=== PATIENT | male | born 1950 | race Caucasian/White ===

== ENCOUNTER 2017-08-26 11:37 | Inpatient (IN) | payer MEDICARE ==
[~2017-08-26] VITALS: Ht 182.9 cm; Wt 89.4 kg
[~2017-08-26 11:37] MED LIST: ASPIR 8181 MG PO; CARVEDILOL12.5 MG PO; FUROSEMIDE40 MG PO; LISINOPRIL10 MG PO
[2017-08-26] MEDS ORDERED: SPIRONOLACTONE25 MG PO (12:05)
[2017-08-26] MEDS ORDERED: LAMISIL250 MG PO (12:05)
[2017-08-26] MEDS ORDERED: HARVONI PO (12:05)
[2017-08-26 12:56] LABS: KETONES,URINE NEGATIVE (NEGATIVE); LEUKOCYTE ESTERASE ,URINE TRACE (NEGATIVE); NITRITE,URINE NEGATIVE (NEGATIVE); URINE UROBILINOGEN 1 mg/dL (0.2 - 1)
[2017-08-26 13:02] LABS: BILIRUBIN,URINE 2+ (NEGATIVE); CLARITY,URINE SL CLOUDY (CLEAR); COLOR,URINE ORANGE (YELLOW); PROTEIN,URINE DIPSTICK 1+ (NEGATIVE)
[2017-08-26 13:22] LABS: BACTERIA,URINE MODERATE /HPF; CALCIUM OXALATE CRYSTALS,UR MODERATE (FEW)
[2017-08-26 13:23] LABS: EPITHELIAL CELLS,URINE FEW /LPF
[2017-08-26 15:15] LABS: BASOPHILS % 0.3 % (0.0-1.0); EOSINOPHILS # (AUTO) 0.1 (0.0-0.4); EOSINOPHILS % 0.6 % (0.0-6.0); HEMATOCRIT 56.6 % (38.2-49.6); HEMOGLOBIN 18.7 g/dL (14.0-18.0); LYMPHOCYTES # (AUTO) 2.5 (1.0-3.2); LYMPHOCYTES % 21.5 % (18.0-39.1); MEAN CORPUSCULAR HEMOGLOBIN 30.4 pg (28-32); MEAN CORPUSCULAR VOLUME 91.9 fL (81-99); MONOCYTES % 8.8 % (4.4-11.3); NEUTROPHILS # (AUTO) 7.9 (2.1-6.9); NEUTROPHILS % 68.3 % (38.7-80.0); PLATELET COUNT 286 x10e3/uL (140-360); RED BLOOD COUNT 6.16 x10e6/uL (4.3-5.7); RED CELL DISTRIBUTION WIDTH 15.8 % (11.7-14.4)
[2017-08-26 15:31] LABS: ALBUMIN 3.7 g/dL (3.5-5.0); ALBUMIN/GLOBULIN RATIO 0.8 (0.8-2.0); ANION GAP 16.3 mmol/L (8-16); CREATININE, SERUM 5.15 mg/dL (0.72-1.25)
[2017-08-26 15:35] LABS: CALCIUM 14.7 mg/dL (8.4-10.2); POTASSIUM 6.3 mmol/L (3.5-5.1)
[2017-08-26 15:37] LABS: CREATINE KINASE MB 1.4 ng/mL (0.00-5.00); TROPONIN I 0.056 ng/mL (0-0.300)
--- NOTE | 2017-08-26 15:48 | Diagnostic Imaging Report ---
PROCEDURE: A single AP view of the chest. COMPARISON: None. INDICATIONS: CENTER CHEST PAIN FOR 3 DAYS FINDINGS: Lines/tubes: None. Lungs: The lungs are well inflated and clear. There is no evidence of pneumonia or pulmonary edema. Pleura: There is no pleural effusion or pneumothorax. Heart and mediastinum: The thoracic aorta is tortuous and unfolded. The cardiac silhouette is normal in size. Bones: No acute bony abnormality. IMPRESSION: 1. No acute cardiopulmonary disease. Tortuous thoracic aorta. Joey Pierre M.D. Dictated by: Joey Pierre M.D. on 08/26/2017 at 15:56 Electronically approved by: Joey Pierre M.D. on 08/26/2017 at 15:56
[2017-08-26 15:49] LABS: INR 0.89; PARTIAL THROMBOPLASTIN TIME 27.8 seconds (23.8-35.5); PROTHROMBIN TIME 12.5 seconds (11.9-14.5)
[2017-08-26] MEDS ORDERED: SODIUM CHLORIDE 0.9% 1000ML 1,000 ML IV SCH (18:30)
[2017-08-26] MEDS ORDERED: SOD POLYSTYRENE SULFONATE SUSP 15 GM/60 ML BTL PR ONE (18:30)
[2017-08-26] MEDS ORDERED: FUROSEMIDE INJ 10 MG/ML 2 ML VIAL IV ONE (18:45)
[2017-08-26] MEDS ORDERED: ONDANSETRON HCL INJ 2 MG/ML VIAL IV STA (19:51)
[2017-08-26] MEDS: PANTOPRAZOLE INJ 40 MG in SODIUM CHLORIDE 0.9% 50ML 50 ML IV SCH (20:16)
[2017-08-26] MEDS: SODIUM CHLORIDE 0.9% 1000ML 1,000 ML IV SCH (20:44)
[2017-08-26] MEDS ORDERED: ONDANSETRON HCL INJ 2 MG/ML VIAL IV PRN (20:45)
[2017-08-26] MEDS ORDERED: FUROSEMIDE INJ 10 MG/ML 4 ML VIAL IV ONE (21:00)
[2017-08-26] MEDS ORDERED: NIFEDIPINE 10 MG CAP SL ONE (21:15)
[2017-08-27] VITALS (8 sets, daily range): BP systolic 114–146; BP diastolic 72–103
[2017-08-27] MEDS: PANTOPRAZOLE INJ 40 MG in SODIUM CHLORIDE 0.9% 50ML 50 ML IV SCH ×3 (01:59→11:29)
[2017-08-27] MEDS: SODIUM CHLORIDE 0.9% 1000ML 1,000 ML IV SCH ×4 (06:01→21:02)
[2017-08-27 06:22] LABS: BASOPHILS % 0.3 % (0.0-1.0); EOSINOPHILS # (AUTO) 0.1 (0.0-0.4); EOSINOPHILS % 1.2 % (0.0-6.0); HEMATOCRIT 52.6 % (38.2-49.6); HEMOGLOBIN 17.3 g/dL (14.0-18.0); LYMPHOCYTES # (AUTO) 2.2 (1.0-3.2); LYMPHOCYTES % 19.5 % (18.0-39.1); MEAN CORPUSCULAR HEMOGLOBIN 30.1 pg (28-32); MEAN CORPUSCULAR HGB CONC 32.9 g/dL (31-35); MEAN CORPUSCULAR VOLUME 91.5 fL (81-99); MONOCYTES # (AUTO) 1.1 (0.2-0.8); NEUTROPHILS # (AUTO) 7.7 (2.1-6.9); NEUTROPHILS % 68.5 % (38.7-80.0); PLATELET COUNT 275 x10e3/uL (140-360); RED BLOOD COUNT 5.75 x10e6/uL (4.3-5.7); RED CELL DISTRIBUTION WIDTH 15.6 % (11.7-14.4)
[2017-08-27 06:41] LABS: ALBUMIN 3.4 g/dL (3.5-5.0); ALBUMIN/GLOBULIN RATIO 0.8 (0.8-2.0); ANION GAP 15.8 mmol/L (8-16); CREATININE, SERUM 5.23 mg/dL (0.72-1.25)
[2017-08-27 07:05] LABS: CALCIUM 13.2 mg/dL (8.4-10.2); POTASSIUM 4.8 mmol/L (3.5-5.1)
[2017-08-27] MEDS: CARVEDILOL 12.5 MG TAB PO SCH ×2 (08:45→17:27)
[2017-08-27] MEDS: ASPIRIN 81 MG CHEW TAB PO SCH (09:15)
[2017-08-27] MEDS: LEVOFLOXACIN 250MG/D5W 50ML 50 ML IV SCH (09:15)
[2017-08-27] MEDS: CHLORPROMAZINE HCL INJ 25 MG/ML AMP INJ PRN ×2 (09:48→20:56)
--- NOTE | 2017-08-27 10:14 | Consultation ---
DATE OF CONSULTATION: NEPHROLOGY CONSULTATION REASON FOR CONSULTATION: Acute kidney injury, dehydration and hyperkalemia. HPI: A 66-year-old male with a history of heart disease, hepatitis C, currently on Harvoni treatment, who presents to the ED with complaints of nausea, vomiting, decreased oral intake ongoing for the last several days. Patient reports starting his Harvoni 2 or 3 days ago. Since then, he has been having significant amount of decreased oral intake, nausea and vomiting. He reports no diarrhea at home. He also denies any chest pain or palpitations. Patient reports every time he eats something he would begin to have some vomiting episodes. Patient was seen and evaluated at bedside in the ER, and currently doing well. His labs were reviewed. His potassium is much improved. He denies any kidney stones, history of chronic UTIs, NSAID usage, herbal supplements, or anything over the counter. REVIEW OF SYSTEMS: Pertinent positives are fatigue, nausea, vomiting, decreased oral intake, dehydration. Pertinent negatives: Denies any chest pain, palpitations, diarrhea, dysuria, hematuria, frequency, urgency, lightheadedness, dizziness, headache, or any shortness of breath. The rest of the 14-point review of systems have been reviewed with the patient and are negative. ALLERGIES: NO KNOWN DRUG ALLERGIES. HOME MEDICATIONS 1. Aspirin 81 mg daily. 2. Coreg 12.5 mg b.i.d. 3. Spironolactone 50 mg p.o. b.i.d. 4. 1 tab p.o. daily. 5. Harvoni 1 tab p.o. daily. PAST MEDICAL HISTORY: Hepatitis C, hypertension, coronary artery disease. SURGICAL HISTORY: None. FAMILY HISTORY: Hypertension and diabetes. SOCIAL HISTORY: No drugs. No alcohol. Does not smoke. Currently works. PHYSICAL EXAMINATION VITAL SIGNS: Temperature is 98.8, pulse 87, respiratory rate 18, blood pressure 146/103, pulse ox 97% on room air. GENERAL: Not in acute distress. Alert and oriented times 3. Cooperative on exam. HEENT: Head is normocephalic and atraumatic. Eyes: Pupils equal, round and reactive to light bilaterally. Extraocular movements intact. NECK: Supple. Good range of motion. Throat with no evidence of any erythema or exudates in the posterior pharynx. Has poor dentition. PULMONARY: Clear to auscultation bilaterally. No wheezing. No rales. No rhonchi or crackles appreciated. CARDIOVASCULAR: Positive S1 and S2. No murmurs, rubs or gallops appreciated. ABDOMEN: Soft, nondistended and nontender to palpation. Bowel sounds present. MUSCULOSKELETAL: Strength is 5/5 throughout. No weakness of any muscles on examination. No appreciated. NEUROLOGICAL: Cranial nerves II-XII are grossly intact. No evidence of any neurologic deficit on exam. SKIN: Intact and warm to touch. Good cap refill. PSYCHIATRIC: Normal affect and mood. EXTREMITIES: No edema. Good range of motion throughout. Has dry oral mucosa. LAB FINDINGS: White count 11.2, hemoglobin 17, hematocrit 52, and his platelets are 275,000. Coagulation: PT is 12.5, INR 0.89 and PTT 27.8. Chemistry: Sodium 137, potassium 4.8, chloride 95, bicarb 21, anion gap of 15, BUN 47, creatinine 5.3, glucose 93. Calcium is 10.3. Total bilirubin is 1.4, AST 30, ALT 49, alk phos 42. His troponin was 0.056. Albumin 3.4. Urinalysis with calcium oxylate stone seen. Urine bacteria was seen, 1-5 granular casts with 1-5 white casts, 2+ bilirubin, 3+ blood, specific gravity is elevated. MICROBIOLOGY: Urine cultures are pending. IMAGING STUDIES: Chest x-ray with no acute cardiopulmonary disease seen. IMPRESSION 1. Acute kidney injury likely due to prerenal azotemia with underlying chronic kidney disease with baseline creatinine around 2. 2. Hyperkalemia. 3. Metabolic alkalosis. 4. Anion gap metabolic acidosis. 5. Hypercalcemia. PLAN: At this time, I will continue with IV fluid hydration at 150 mL per hour. He is making good urine output. His potassium was treated medically, and currently potassium is 4.8. He was given Kayexalate, D50 and insulin, and he has had several bowel movements as well. He is making good urine output. There is no indication right now at this moment for renal replacement therapy. I will order urine electrolytes, urine sodium, urine creatinine, urine protein to creatinine, urine chloride, urine potassium, microalbumin to creatinine, as well as urine eosinophils. Will also get a renal ultrasound to further evaluate for any sort of obstruction. His UA microscopy was evaluated. There was some evidence of some fine granular casts and some calcium oxylate crystals, which could be contributing to his underlying acute kidney injury. At this time, we are just going to continue to monitor and order these specific studies, and re-evaluate in the morning with repeat labs. Thank you so much for this consultation. Will continue to follow with you. Job#: [id number] FRANCOIS
--- NOTE | 2017-08-27 11:27 | Diagnostic Imaging Report ---
PROCEDURE:US RETROPERITONEAL ( KIDNEY ). COMPARISON:None. INDICATIONS:Renal Failure TECHNIQUE: Stevens-scale and color sonographic images of the bilateral kidneys and bladder where obtained in transverse and longitudinal planes. FINDINGS: RIGHT KIDNEY: 11.9 cm, cortex 1.3 cm Cysts: 1.9 cm cyst in the midpole of the right kidney Solid masses: None Stones: None Hydronephrosis: None Echogenicity: Normal LEFT KIDNEY: 11.5 cm, cortex 2.1 cm Cysts: 1.3 cm exophytic cyst in the left superior pole Solid masses: None Stones: None Hydronephrosis: None Echogenicity: Normal Bladder: Unremarkable Prostate: The prostate measures 3.7 x 3.2 x 4.4 cm (27.4 cc) which is within normal limits in size. CONCLUSION: Bilateral renal cysts. No hydronephrosis, stones, or solid mass. Dictated by: Paulo Angela M.D. on 08/27/2017 at 11:36 Electronically approved by: Paulo Angela M.D. on 08/27/2017 at 11:36
[2017-08-27] MEDS: PANTOPRAZOL 40MG/SOD CHL 0.9% 50 ML IV SCH ×2 (17:50→22:00)
--- NOTE | 2017-08-27 19:05 | Consultation ---
DATE OF CONSULTATION: August 27, 2017 GASTROENTEROLOGY CONSULTATION HISTORY OF PRESENT ILLNESS: Mr. Carvalho is a 66-year-old white male who has a history of hypertension, chronic hepatitis C. He was started recently on Harvoni treatment. Showed up in the emergency room with 3 days of severe nausea and vomiting, weak and tired. Found to be severely dehydrated and was admitted for hydration and management. Speaking to him further, he said he has been having some diffuse abdominal discomfort lately, constant, occasionally severe. No relieving factor but aggravated with eating. He denied diarrhea, constipation, blood in his stool or melena. Had subjective weight loss. He does have quite a bit of heartburn and acid reflux. Never had upper endoscopy and not sure about having in the past colon cancer screening. CURRENT MEDICATION: Coreg, Protonix, aspirin and Zofran. ALLERGIES: HE IS NOT ALLERGIC TO ANYTHING. SOCIAL HISTORY: He denied any smoking or drinking in the past. SURGICAL HISTORY: Only gallbladder removal. PHYSICAL EXAMINATION: VITAL SIGNS: Temperature 98, pulse 101, respiratory 17, blood pressure 146/103. GENERAL: Awake, alert, oriented. HEENT: Normal sclerae. NECK: Supple. LUNGS: Clear to auscultation. HEART: Regular-regular rhythm. ABDOMEN: Soft, tender, but no acute sign. No masses, no organomegaly. Bowel sounds present. EXTREMITIES: No edema. CENTRAL NERVOUS SYSTEM: Grossly intact. Motor function grossly intact. LAB TESTS: White cell 11.25, hemoglobin 17, hematocrit 52, platelet 275. Total bilirubin 1.4, AST 38, ALT 49 which is normal, and alk phos is normal. PT, PTT normal. BUN and creatinine are 47 and 5. Sodium 137, potassium 4. Chest x-ray unremarkable. However, his urinalysis showed white cell count 11-20, RBCs 6-10. IMPRESSION: Chronic hepatitis C treated with Harvoni. Recent onset of nausea and vomiting. I am not sure if that is related to the Harvoni treatment, but nausea is listed as possible side effect but it is very low percentage, and vomiting is not one of the side effects. He could have probably urinary tract infection that caused the nausea and vomiting and dehydration, which would explain also his urinalysis. Urine culture is pending. He could have some mild gastroenteritis. Agree with hydration. Agree with the Protonix for now, and we can plan for upper endoscopy and colonoscopy as an outpatient. Job#: [id number] EV
[2017-08-27 20:49] LABS: ALBUMIN 2.7 g/dL (3.5-5.0); ALBUMIN/GLOBULIN RATIO 0.8 (0.8-2.0); ANION GAP 11.2 mmol/L (8-16); CALCIUM 10.3 mg/dL (8.4-10.2); CREATININE, SERUM 5.23 mg/dL (0.72-1.25); POTASSIUM 4.2 mmol/L (3.5-5.1)
[2017-08-27] MEDS: TAMSULOSIN HCL 0.4 MG CAP PO SCH (21:01)
[2017-08-28] VITALS (7 sets, daily range): BP systolic 108–139; BP diastolic 63–83
[2017-08-28] MEDS: PANTOPRAZOL 40MG/SOD CHL 0.9% 50 ML IV SCH ×5 (04:00→22:02)
[2017-08-28] MEDS: SODIUM CHLORIDE 0.9% 1000ML 1,000 ML IV SCH ×3 (05:12→17:33)
[2017-08-28 07:10] LABS: BASOPHILS % 0.5 % (0.0-1.0); EOSINOPHILS # (AUTO) 0.2 (0.0-0.4); EOSINOPHILS % 2.9 % (0.0-6.0); HEMATOCRIT 42.9 % (38.2-49.6); HEMOGLOBIN 14.4 g/dL (14.0-18.0); LYMPHOCYTES # (AUTO) 1.7 (1.0-3.2); LYMPHOCYTES % 28.1 % (18.0-39.1); MEAN CORPUSCULAR HEMOGLOBIN 30.5 pg (28-32); MEAN CORPUSCULAR HGB CONC 33.6 g/dL (31-35); MEAN CORPUSCULAR VOLUME 90.9 fL (81-99); MONOCYTES # (AUTO) 0.6 (0.2-0.8); MONOCYTES % 10.3 % (4.4-11.3); NEUTROPHILS # (AUTO) 3.5 (2.1-6.9); NEUTROPHILS % 56.9 % (38.7-80.0); PLATELET COUNT 178 x10e3/uL (140-360); RED BLOOD COUNT 4.72 x10e6/uL (4.3-5.7); RED CELL DISTRIBUTION WIDTH 15.4 % (11.7-14.4)
[2017-08-28 07:47] LABS: ALBUMIN 2.6 g/dL (3.5-5.0); ALBUMIN/GLOBULIN RATIO 0.8 (0.8-2.0); ANION GAP 12.1 mmol/L (8-16); CALCIUM 9.9 mg/dL (8.4-10.2); CREATININE, SERUM 4.9 mg/dL (0.72-1.25); POTASSIUM 4.1 mmol/L (3.5-5.1)
[2017-08-28] MEDS: ASPIRIN 81 MG CHEW TAB PO SCH (08:08)
[2017-08-28] MEDS: CARVEDILOL 12.5 MG TAB PO SCH ×2 (08:08→16:45)
[2017-08-28] MEDS: LEVOFLOXACIN 250MG/D5W 50ML 50 ML IV SCH (08:08)
--- NOTE | 2017-08-28 12:18 | Diagnostic Imaging Report ---
Examination: Bone survey. Comparison: None. History: Hypercalcemia Findings: Frontal view of the chest, AP and lateral of the skull, AP and lateral views of the cervical, thoracic and lumbar spine, AP and lateral views of the extremities were provided. No lytic or blastic lesions or abnormal cortical thickening throughout the axial and appendicular skeleton. Mild degenerative changes of the thoracolumbar spine and both hips. Degenerative changes of both hands. Vascular calcifications to the right side of the neck. The lungs and cardiomediastinal silhouette are unremarkable. Indeterminate calcification overlying the right upper quadrant with adjacent surgical clip. Impression: Unremarkable bone survey. Signed by: Dr. Aminata Henao M.D. on 08/28/2017 12:14 PM
[2017-08-28 19:22] LABS: ANION GAP 12.9 mmol/L (8-16); CALCIUM 9.1 mg/dL (8.4-10.2); CREATININE, SERUM 3.97 mg/dL (0.72-1.25); POTASSIUM 3.9 mmol/L (3.5-5.1)
[2017-08-28] MEDS: TAMSULOSIN HCL 0.4 MG CAP PO SCH (21:20)
[2017-08-29] VITALS (8 sets, daily range): BP systolic 119–160; BP diastolic 75–99
[2017-08-29] MEDS: SODIUM CHLORIDE 0.9% 1000ML 1,000 ML IV SCH ×4 (02:30→18:48)
[2017-08-29] MEDS: PANTOPRAZOL 40MG/SOD CHL 0.9% 50 ML IV SCH ×4 (03:38→18:48)
[2017-08-29 07:50] LABS: BASOPHILS % 0.4 % (0.0-1.0); EOSINOPHILS # (AUTO) 0.2 (0.0-0.4); EOSINOPHILS % 4.1 % (0.0-6.0); HEMOGLOBIN 13.9 g/dL (14.0-18.0); LYMPHOCYTES # (AUTO) 1.5 (1.0-3.2); LYMPHOCYTES % 27.2 % (18.0-39.1); MEAN CORPUSCULAR HEMOGLOBIN 30.6 pg (28-32); MEAN CORPUSCULAR HGB CONC 33.9 g/dL (31-35); MEAN CORPUSCULAR VOLUME 90.3 fL (81-99); MONOCYTES # (AUTO) 0.6 (0.2-0.8); MONOCYTES % 10.2 % (4.4-11.3); NEUTROPHILS # (AUTO) 3.1 (2.1-6.9); NEUTROPHILS % 57.2 % (38.7-80.0); PLATELET COUNT 180 x10e3/uL (140-360); RED BLOOD COUNT 4.54 x10e6/uL (4.3-5.7); RED CELL DISTRIBUTION WIDTH 15.1 % (11.7-14.4)
[2017-08-29] MEDS: LEVOFLOXACIN 250MG/D5W 50ML 50 ML IV SCH (08:04)
[2017-08-29] MEDS: ASPIRIN 81 MG CHEW TAB PO SCH (08:04)
[2017-08-29] MEDS: CARVEDILOL 12.5 MG TAB PO SCH ×2 (08:05→16:54)
[2017-08-29 08:09] LABS: ALBUMIN 2.6 g/dL (3.5-5.0); ALBUMIN/GLOBULIN RATIO 0.8 (0.8-2.0); CREATININE, SERUM 3.16 mg/dL (0.72-1.25)
[2017-08-29] MEDS: TAMSULOSIN HCL 0.4 MG CAP PO SCH (21:36)
[2017-08-30] VITALS: BP 145/82
[2017-08-30] MEDS: PANTOPRAZOL 40MG/SOD CHL 0.9% 50 ML IV SCH (00:15)
[2017-08-30 04:00] VITALS: BP 151/92
[2017-08-30] MEDS: SODIUM CHLORIDE 0.9% 1000ML 1,000 ML IV SCH (06:17)
[2017-08-30 07:47] LABS: ALBUMIN 2.6 g/dL (3.5-5.0); ALBUMIN/GLOBULIN RATIO 0.9 (0.8-2.0); ANION GAP 10.1 mmol/L (8-16); CALCIUM 9.1 mg/dL (8.4-10.2); CREATININE, SERUM 2.54 mg/dL (0.72-1.25); POTASSIUM 4.1 mmol/L (3.5-5.1)
[2017-08-30] MEDS: LEVOFLOXACIN 250MG/D5W 50ML 50 ML IV SCH (08:22)
[2017-08-30] MEDS: ASPIRIN 81 MG CHEW TAB PO SCH (08:22)
[2017-08-30] MEDS: CARVEDILOL 12.5 MG TAB PO SCH (08:23)
[2017-08-30 10:28] VITALS: BP 162/93
[2017-08-30 11:40] LABS: BILIRUBIN,URINE NEGATIVE (NEGATIVE); KETONES,URINE NEGATIVE (NEGATIVE); LEUKOCYTE ESTERASE ,URINE NEGATIVE (NEGATIVE); NITRITE,URINE NEGATIVE (NEGATIVE); PROTEIN,URINE DIPSTICK NEGATIVE (NEGATIVE); URINE UROBILINOGEN 0.2 mg/dL (0.2 - 1)
[2017-08-30 11:43] LABS: CLARITY,URINE CLEAR (CLEAR); COLOR,URINE YELLOW (YELLOW)
[2017-08-30 11:58] LABS: CREATININE,URINE RANDOM 67.61 mg/dL (63-166); SODIUM,URINE 119 mmol/L
[2017-08-30 11:59] LABS: POTASSIUM,URINE 19.8 mmol/L
[2017-08-30 12:07] LABS: EPITHELIAL CELLS,URINE RARE /LPF; RBC,URINE 0-5 /HPF (0-5); WBC,URINE (MAN) 0-5 /HPF (0-5)
[2017-08-30 12:48] VITALS: BP 143/91
[2017-08-30 14:25] LABS: EOSINOPHIL SMEAR,URINE NONE SEEN (NONE SEEN)
== END 2017-08-30 13:30 | disposition home or self-care (01) | DRG 683 ==
LOC: ER 11:37 → ERHOLD 20:48 → MED/SURG 08-27 11:55
PROVIDERS: ADMIT Internal Medicine Critical Care Medicine; ATTEND Internal Medicine Critical Care Medicine
DX: N17.9 Acute kidney failure, unspecified (principal); E87.3 Alkalosis; E87.2 Acidosis; K75.9 Inflammatory liver disease, unspecified; I13.0 Hypertensive heart and chronic kidney disease with heart failure and stage 1 through stage 4 chronic kidney disease, or unspecified chronic kidney disease; I50.9 Heart failure, unspecified; E86.0 Dehydration; T50.995A Adverse effect of other drugs, medicaments and biological substances, initial encounter; E87.5 Hyperkalemia; E83.51 Hypocalcemia; B18.2 Chronic viral hepatitis C; I25.10 Atherosclerotic heart disease of native coronary artery without angina pectoris; N18.2 Chronic kidney disease, stage 2 (mild)
CPT/HCPCS: 36415; 71010; 76770; 77075; 80048; 80053; 81001; 81015; 82044; 82270; 82330; 82550; 82553; 82570; 83519; 83970; 84133; 84165; 84300; 84484; 85025; 85610; 85730; 87086; 93005; 96360; 96365; 96374; 96375; 99284; J1940; J1956; J3230; J7030

== ENCOUNTER → 2018-03-16 | Outpatient (CLI) | payer MEDICARE ==
[~2018-03-16] MED LIST changes: +HARVONI PO; +LAMISIL250 MG PO; +SPIRONOLACTONE25 MG PO
--- NOTE | 2018-03-16 15:38 | Diagnostic Imaging Report ---
PROCEDURE: Frontal and lateral views of the chest. COMPARISON: None. INDICATIONS: FLUID RETENTION, SOB FINDINGS: Lines/tubes: None. Lungs: The lungs are well inflated and clear. There is no evidence of pneumonia or pulmonary edema. Pleura: There is no pleural effusion or pneumothorax. Heart and mediastinum: Normal chest. Tortuosity of the thoracic aorta. Bones: No acute bony abnormality. IMPRESSION: 1. No acute cardiopulmonary disease. Dictated by: Paulo Angela M.D. on 03/16/2018 at 15:44 Electronically approved by: Paulo Angela M.D. on 03/16/2018 at 15:44
== END ==
LOC: RAD 15:04
PROVIDERS: ATTEND Internal Medicine Cardiovascular Disease
DX: R60.9 Edema, unspecified (principal)
CPT/HCPCS: 71046